=== PATIENT | male | born 1980 | race Caucasian/White ===

== ENCOUNTER 2016-06-16 13:01 | Emergency (ER) | payer OTHER ==
[2016-06-16] MEDS ORDERED: SODIUM CHLORIDE 0.9% FLUSH 10 ML SOL IV PRN (13:18)
[2016-06-16] MEDS ORDERED: ASPIRIN 81 MG CHEWABLE CTB PO STA (13:18)
[2016-06-16] MEDS ORDERED: NITROGLYCERIN 0.4 MG TAB SL PRN (13:18)
[2016-06-16] MEDS ORDERED: MORPHINE SULFATE 10 MG/ML SOL IV PRN (13:18)
[2016-06-16] MEDS ORDERED: LORAZEPAM 2 MG/ML SOL IV ONE (13:20)
[2016-06-16 13:26] LABS: BASOPHILS % (AUTO) 1 % (0-3); EOSINOPHILS % (AUTO) 3 % (0-9); HEMATOCRIT 49 % (39-53); MEAN CORPUSCULAR HGB CONC 35.3 gm/dl (32.0-36.0); MEAN CORPUSCULAR VOLUME 82 fL (80-100); MONOCYTES % (AUTO) 9.6 % (0-12); NEUTROPHILS % (AUTO) 48.3 % (37-80)
[2016-06-16] MEDS ORDERED: ASPIRIN 81 MG CHEWABLE CTB ONE ×2 (13:27→13:40)
[2016-06-16] MEDS ORDERED: LORAZEPAM 2 MG/ML SOL ONE (13:27)
[2016-06-16 13:45] LABS: CALCIUM 9.3 mg/dl (8.5-10.1); GLOM FILT RATE 71 mL/min (>60); POTASSIUM 4.1 mMol/L (3.5-5.1); SODIUM 138 mMol/L (136-145)
[2016-06-16 14:03] VITALS: TEMP 97.9
[2016-06-16] MEDS ORDERED: KETOROLAC TROMETHAMINE 30 MG/ML SOL IV ONE (14:27)
[2016-06-16] MEDS ORDERED: KETOROLAC TROMETHAMINE 30 MG/ML SOL ONE (14:28)
[2016-06-16 16:02] VITALS: O2SAT 97
[2016-06-16 16:04] VITALS: BP 141/83; PULSE 73; RESP 17
== END 2016-06-16 15:32 | disposition home or self-care (01) | DRG 195 ==
LOC: ED 13:01
DX: R09.1 Pleurisy (principal)
CPT/HCPCS: 71010; 80048; 82550; 84484; 85025; 85378; 85610; 93005; 96374; 96375; 99284; J1885; J2060

== ENCOUNTER 2016-07-08 00:57 | Emergency (ER) | payer MEDICAID, OTHER ==
[2016-07-08] MEDS ORDERED: LORAZEPAM 0.5 MG TAB PO ONE ×2 (01:19→01:29)
[2016-07-08] MEDS ORDERED: LORAZEPAM 0.5 MG TAB ONE ×2 (01:20→01:29)
[2016-07-08 01:29] VITALS: TEMP 96.5
[2016-07-08 02:14] VITALS: RESP 16; O2SAT 96
[2016-07-08] MEDS ORDERED: DIPHENHYDRAMINE 25 MG CAP PO ONE (02:40)
[2016-07-08] MEDS ORDERED: DIPHENHYDRAMINE 25 MG CAP ONE (02:41)
[2016-07-08 02:54] VITALS: BP 160/103; PULSE 79
== END 2016-07-08 02:48 | disposition home or self-care (01) | DRG 880 ==
LOC: ED 00:57
DX: F41.0 Panic disorder [episodic paroxysmal anxiety] (principal)
CPT/HCPCS: 99283

== ENCOUNTER 2016-10-16 00:53 | Emergency (ER) | payer MEDICAID, OTHER ==
[2016-10-16 01:07] VITALS: RESP 18; TEMP 97.2
[2016-10-16] MEDS ORDERED: KETOROLAC TROMETHAMINE 30 MG/ML SOL IM ONE (01:15)
[2016-10-16] MEDS ORDERED: KETOROLAC TROMETHAMINE 30 MG/ML SOL ONE (01:17)
[2016-10-16 04:27] VITALS: BP 159/122; PULSE 82; O2SAT 98
== END 2016-10-16 02:45 | disposition home or self-care (01) | DRG 605 ==
LOC: ED 00:53
DX: S50.02XA Contusion of left elbow, initial encounter (principal); W22.8XXA Striking against or struck by other objects, initial encounter; Y99.0 Civilian activity done for income or pay
CPT/HCPCS: 73070; 99283; J1885

== ENCOUNTER 2016-11-28 10:26 | Emergency (ER) | payer SELFPAY ==
[2016-11-28 10:45] VITALS: TEMP 97.2
[2016-11-28] MEDS ORDERED: BUPIVACAINE HCL 0.5% MPF 10 ML SOL INFIL ONE (11:12)
[2016-11-28] MEDS ORDERED: KETOROLAC TROMETHAMINE 30 MG/ML SOL IM ONE (11:13)
[2016-11-28] MEDS ORDERED: LIDOCAINE HCL 1% 50 MG/5 ML SOL INFIL ONE (11:13)
[2016-11-28] MEDS ORDERED: BUPIVACAINE HCL 0.25% MPF 10 ML SOL INFIL ONE (11:14)
[2016-11-28] MEDS ORDERED: LIDOCAINE HCL 1% MPF SOL ONE (11:14)
[2016-11-28] MEDS ORDERED: KETOROLAC TROMETHAMINE 30 MG/ML SOL ONE (11:17)
[2016-11-28] MEDS ORDERED: LISINOPRIL 20 MG TAB ONE (11:19)
[2016-11-28] MEDS ORDERED: METOPROLOL TARTRATE 25 MG TAB PO ONE (11:58)
[2016-11-28] MEDS ORDERED: APAP/OXYCODONE 325/5 TAB PO ONE (11:59)
[2016-11-28] MEDS ORDERED: APAP/OXYCODONE 325/5 TAB ONE (12:12)
[2016-11-28] MEDS ORDERED: METOPROLOL TARTRATE 25 MG TAB ONE (12:12)
[2016-11-28 12:53] VITALS: BP 132/97; PULSE 71; RESP 18; O2SAT 100
[2016-11-29] MEDS ORDERED: LISINOPRIL 20 MG TAB PO ONE (11:12)
== END 2016-11-28 12:47 | disposition home or self-care (01) | DRG 159 ==
LOC: ED 10:26
DX: K08.89 Other specified disorders of teeth and supporting structures (principal); I10 Essential (primary) hypertension; Z91.14 Patient's other noncompliance with medication regimen
CPT/HCPCS: 99284; J1885; J2001

== ENCOUNTER 2017-03-15 18:56 | Emergency (ER) | payer OTHER ==
[2017-03-15] MEDS ORDERED: SODIUM CHLORIDE 0.9% FLUSH 10 ML SOL IV PRN (19:01)
[2017-03-15] MEDS ORDERED: NITROGLYCERIN 0.4 MG TAB SL PRN (19:01)
[2017-03-15 19:03] VITALS: TEMP 97.9
[2017-03-15] MEDS ORDERED: MORPHINE SULFATE 10 MG/ML SOL IV ONE (19:07)
[2017-03-15] MEDS ORDERED: MORPHINE SULFATE 10 MG/ML SOL ONE (19:12)
[2017-03-15 19:34] LABS: BASOPHILS % (AUTO) 1 % (0-3); CALCIUM 8.8 mg/dl (8.5-10.1); EOSINOPHILS % (AUTO) 3 % (0-9); GLOM FILT RATE 77 mL/min (>60); HEMATOCRIT 48 % (39-53); MEAN CORPUSCULAR HGB CONC 34.9 gm/dl (32.0-36.0); MEAN CORPUSCULAR VOLUME 84 fL (80-100); MONOCYTES % (AUTO) 9.4 % (0-12); NEUTROPHILS % (AUTO) 50.1 % (37-80); POTASSIUM 4.1 mMol/L (3.5-5.1); SODIUM 134 mMol/L (136-145)
[2017-03-15] MEDS ORDERED: KETOROLAC TROMETHAMINE 30 MG/ML SOL IV ONE (20:25)
[2017-03-15] MEDS ORDERED: KETOROLAC TROMETHAMINE 30 MG/ML SOL ONE (20:28)
[2017-03-15 21:23] VITALS: BP 131/90; PULSE 70; RESP 20; O2SAT 97
== END 2017-03-15 21:15 | disposition home or self-care (01) | DRG 313 ==
LOC: ED 18:56
DX: R07.89 Other chest pain (principal); I49.9 Cardiac arrhythmia, unspecified; R11.0 Nausea
CPT/HCPCS: 71045; 80048; 82550; 84484; 85025; 85610; 85730; 93005; 99285; J1885; J2270